=== PATIENT | male | born 1950 | race Caucasian/White ===

== ENCOUNTER 2020-11-28 14:03 | Emergency (ER) | payer MEDICARE, OTHER ==
[~2020-11-28] VITALS: Ht 165.1 cm; Wt 68.2 kg
[~2020-11-28 14:03] MED LIST: ALBU8.5H8 IH; ATOR10TA84 PO; LISI-892 PO; METO25 PO; PROM118S5 PO; WARF2.5T38 PO
[2020-11-28] MEDS ORDERED: LOSA25TA21 PO (14:21)
[2020-11-28 16:15] VITALS: BP 140/57
[2020-11-28] MEDS ORDERED: METHOCARBAMOL 500 MG TABLET PO ONE (16:30)
[2020-11-28] MEDS ORDERED: KETOROLAC TROMETHAMINE 60 MG/2 ML VIAL IM ONE (16:30)
== END 2020-11-28 16:58 | disposition home or self-care (01) ==
LOC: EMS 14:03
DX: M54.31 Sciatica, right side (principal); E11.9 Type 2 diabetes mellitus without complications; E78.00 Pure hypercholesterolemia, unspecified; I10 Essential (primary) hypertension; Z79.899 Other long term (current) drug therapy
CPT/HCPCS: 96372; 99283; J1885